=== PATIENT | male | born 1960 | race African-American/Black ===

== ENCOUNTER 2017-01-29 20:41 | Emergency (ER) | payer MEDICAID ==
[~2017-01-29] VITALS: Ht 188 cm; Wt 73.0 kg
[~2017-01-29 20:41] MED LIST: DEPAKOTE; RISPERDAL
[2017-01-30 00:38] LABS: BASOPHILS % 0.7 % (0.0-2.0); EOSINOPHILS % 0.5 % (0.0-5.0); HEMATOCRIT. 41.9 % (42.0-52.0); HEMOGLOBIN. 13.9 g/dL (14.0-18.0); LYMPHOCYTES % 19.2 % (20.0-50.0); MEAN CORPUSCULAR HEMOGLOBIN 28.5 pg (28.0-32.0); MEAN CORPUSCULAR HGB CONC 33.3 g/dL (31.0-37.0); MEAN CORPUSCULAR VOLUME 85.8 fL (80.0-94.0); MONOCYTES % 5.3 % (2.0-8.0); NEUTROPHILS % 74.3 % (40.0-76.0); PLATELET 299 x1000/uL (130-400); RED BLOOD CELL COUNT 4.88 mill/uL (4.7-6.1); RED CELL DISTRIBUTION WIDTH 14.2 % (11.6-14.6); WHITE BLOOD COUNT 11.6 x1000/uL (4.5-11.0)
[2017-01-30 00:38] LABS: CLARITY URINE CLEAR (CLEAR); COLOR URINE DARK YELLOW (YELLOW); GLUCOSE URINE NEGATIVE (NEGATIVE); KETONES URINE 1+ (NEGATIVE); LEUKOCYTE ESTERASE URINE NEGATIVE (NEGATIVE); NITRITE URINE NEGATIVE (NEGATIVE); OCCULT BLOOD URINE NEGATIVE (NEGATIVE); PH URINE 5.5 (4.5-8.0); PROTEIN URINE NEGATIVE (NEGATIVE)
[2017-01-30 00:46] LABS: CHLORIDE 106 mEq/L (98-107); INDEX HEMOLYSI 1 (1-3); INDEX ICTERIC 1 (1-4); INDEX LIPEMIC 1 (1-3)
[2017-01-30 00:48] LABS: *AMPHETAMINES SCREEN URINE PRESUMTIVE POSITIVE (NEGATIVE); *BARBITURATES SCREEN URINE NEGATIVE (NEGATIVE); *BENZODIAZEPINES SCREEN URINE NEGATIVE (NEGATIVE); *COCAINE SCREEN URINE PRESUMTIVE POSITIVE (NEGATIVE); CANNABINOID URINE SCREEN PRESUMTIVE POSITIVE (NEGATIVE); ECSTASY MDMA SCREEN URINE CONF.TEST INDICATED (NEGATIVE); METHADONE URINE SCREEN NEGATIVE (NEGATIVE); OPIATES URINE SCREEN NEGATIVE (NEGATIVE); PHENCYCLIDINE URINE SCREEN NEGATIVE (NEGATIVE)
[2017-01-30 00:54] LABS: ACETAMINOPHEN < 2 ug/mL (10-30); ALANINE AMINOTRANSFERASE 21 IU/L (13-61); ALBUMIN 3.2 g/dL (3.4-5.0); ANION GAP 10; CALCIUM 8.5 mg/dL (8.5-10.1); CARBON DIOXIDE 29 mEq/L (21-32); ETHANOL BLOOD < 10 mg/dL; UREA NITROGEN BLOOD 19 mg/dL (7-21); eGFR > 60 mL/min (>60)
[2017-01-30 12:52] VITALS: BP 109/62
== END 2017-01-30 12:53 | disposition home or self-care (01) ==
LOC: ER 20:41
DX: F20.0 Paranoid schizophrenia (principal); R45.851 Suicidal ideations; F17.210 Nicotine dependence, cigarettes, uncomplicated; F12.10 Cannabis abuse, uncomplicated; F14.10 Cocaine abuse, uncomplicated; F15.10 Other stimulant abuse, uncomplicated; Z98.890 Other specified postprocedural states; Z87.828 Personal history of other (healed) physical injury and trauma
CPT/HCPCS: 36415; 80053; 80305; 80307; 80329; 81003; 85025; 99284; G0482

== ENCOUNTER 2017-05-15 11:29 | Emergency (ER) | payer MEDICAID, OTHER ==
[~2017-05-15] VITALS: Ht 188 cm; Wt 75.0 kg
[2017-05-15] MEDS ORDERED: ACETAMINOPHEN WITH CODEINE 300/30MG TABLET PO ONE (14:45)
[2017-05-15] MEDS ORDERED: IBUPROFEN 600MG TABLET PO ONE (14:45)
[2017-05-15] MEDS ORDERED: BACITRACIN ZINC OINT UDPKT TOP NR (16:00)
[2017-05-15 16:41] VITALS: BP 124/77
== END 2017-05-15 16:44 | disposition home or self-care (01) ==
LOC: ER 11:29
DX: S62.392A Other fracture of third metacarpal bone, right hand, initial encounter for closed fracture (principal); X58.XXXA Exposure to other specified factors, initial encounter; Y93.89 Activity, other specified; Y92.89 Other specified places as the place of occurrence of the external cause; Y99.8 Other external cause status
CPT/HCPCS: 29125; 73130; 99284; Z7610

== ENCOUNTER 2019-03-03 02:04 | Emergency (ER) | payer MEDICAID, OTHER ==
[~2019-03-03] VITALS: Ht 182.9 cm; Wt 68.0 kg
[2019-03-03] MEDS ORDERED: OLANZAPINE 5MG TABLET PO STA (02:56)
[2019-03-03 03:29] LABS: BASOPHILS % 1.2 % (0.0-2.0); EOSINOPHILS % 1.1 % (0.0-5.0); HEMATOCRIT. 40.9 % (42.0-52.0); HEMOGLOBIN. 13.5 g/dL (14.0-18.0); LYMPHOCYTES % 31.8 % (20.0-50.0); MEAN CORPUSCULAR HEMOGLOBIN 28.5 pg (28.0-32.0); MEAN CORPUSCULAR VOLUME 86.3 fL (80.0-94.0); MEAN PLATELET VOLUME 8.3 fl (7.4-10.4); MONOCYTES % 7.2 % (2.0-8.0); NEUTROPHILS % 58.7 % (40.0-76.0); PLATELET 321 x1000/uL (130-400); RED BLOOD CELL COUNT 4.74 mill/uL (4.7-6.1); RED CELL DISTRIBUTION WIDTH 15.2 % (11.6-14.6)
[2019-03-03 03:33] LABS: CLARITY URINE CLEAR (CLEAR); COLOR URINE YELLOW (YELLOW); KETONES URINE 1+ (NEGATIVE); LEUKOCYTE ESTERASE URINE NEGATIVE (NEGATIVE); NITRITE URINE NEGATIVE (NEGATIVE); OCCULT BLOOD URINE NEGATIVE (NEGATIVE); PROTEIN URINE NEGATIVE (NEGATIVE); SPECIFIC GRAVITY URINE 1.032 (1.005-1.030)
[2019-03-03 03:36] LABS: CHLORIDE 104 mEq/L (98-107)
[2019-03-03 03:40] LABS: ETHANOL BLOOD < 10 mg/dL
[2019-03-03] MEDS ORDERED: OLANZAPINE 5MG TABLET PO NR (03:45)
[2019-03-03 03:51] LABS: *BENZODIAZEPINES SCREEN URINE NEGATIVE (NEGATIVE); *COCAINE SCREEN URINE PRESUMTIVE POSITIVE (NEGATIVE)
[2019-03-03 03:53] LABS: *AMPHETAMINES SCREEN URINE PRESUMTIVE POSITIVE (NEGATIVE); *BARBITURATES SCREEN URINE NEGATIVE (NEGATIVE); CANNABINOID URINE SCREEN PRESUMTIVE POSITIVE (NEGATIVE); METHADONE URINE SCREEN NEGATIVE (NEGATIVE); OPIATES URINE SCREEN NEGATIVE (NEGATIVE); PHENCYCLIDINE URINE SCREEN NEGATIVE (NEGATIVE)
[2019-03-03 06:07] VITALS: BP 127/81
== END 2019-03-03 10:00 | disposition home or self-care (01) ==
LOC: ER 02:04
DX: R45.851 Suicidal ideations (principal); F32.9 Major depressive disorder, single episode, unspecified; F20.9 Schizophrenia, unspecified; F14.10 Cocaine abuse, uncomplicated; F15.10 Other stimulant abuse, uncomplicated; F12.10 Cannabis abuse, uncomplicated; Z88.8 Allergy status to other drugs, medicaments and biological substances
CPT/HCPCS: 36415; 80305; 80320; 99284; G0480

== ENCOUNTER 2021-05-21 04:40 | Emergency (ER) | payer MEDICAID ==
[~2021-05-21] VITALS: Ht 185.4 cm; Wt 82.0 kg
[2021-05-21 04:41] VITALS: BP 121/74
== END 2021-05-21 06:51 | disposition home or self-care (01) ==
LOC: ER 05:23
DX: F15.10 Other stimulant abuse, uncomplicated (principal); F32.9 Major depressive disorder, single episode, unspecified; F20.9 Schizophrenia, unspecified; F14.10 Cocaine abuse, uncomplicated; F12.10 Cannabis abuse, uncomplicated
CPT/HCPCS: 99283

== ENCOUNTER 2021-08-07 05:05 | Emergency (ER) | payer MEDICAID ==
[~2021-08-07] VITALS: Ht 188 cm; Wt 63.0 kg
[2021-08-07 05:31] LABS: BASOPHILS % 0.7 % (0.0-2.0); EOSINOPHILS % 0.7 % (0.0-5.0); HEMATOCRIT. 39.5 % (42.0-52.0); HEMOGLOBIN. 13.1 g/dL (14.0-18.0); LYMPHOCYTES % 24.6 % (20.0-50.0); MEAN CORPUSCULAR HEMOGLOBIN 28.3 pg (28.0-32.0); MEAN CORPUSCULAR VOLUME 85.6 fL (80.0-94.0); MEAN PLATELET VOLUME 8.7 fl (7.4-10.4); MONOCYTES % 9.8 % (2.0-8.0); NEUTROPHILS % 64.2 % (40.0-76.0); PLATELET 293 x1000/uL (130-400); RED BLOOD CELL COUNT 4.62 mill/uL (4.7-6.1); RED CELL DISTRIBUTION WIDTH 14.4 % (11.6-14.6)
[2021-08-07 05:38] LABS: CHLORIDE 104 mEq/L (98-107)
[2021-08-07 05:42] LABS: ETHANOL BLOOD < 10 mg/dL
[2021-08-07 07:09] LABS: CLARITY URINE CLEAR (CLEAR); COLOR URINE YELLOW (YELLOW); KETONES URINE 1+ (NEGATIVE); LEUKOCYTE ESTERASE URINE NEGATIVE (NEGATIVE); NITRITE URINE NEGATIVE (NEGATIVE); OCCULT BLOOD URINE NEGATIVE (NEGATIVE); PROTEIN URINE NEGATIVE (NEGATIVE); SPECIFIC GRAVITY URINE 1.027 (1.005-1.030); UROBILINOGEN URINE 0.2 E.U./dL (0.2-1.0)
[2021-08-07 07:29] LABS: *BARBITURATES SCREEN URINE NEGATIVE (NEGATIVE); CANNABINOID URINE SCREEN PRESUMTIVE POSITIVE (NEGATIVE); METHADONE URINE SCREEN NEGATIVE (NEGATIVE); OPIATES URINE SCREEN NEGATIVE (NEGATIVE); PHENCYCLIDINE URINE SCREEN NEGATIVE (NEGATIVE)
[2021-08-07 07:30] LABS: *AMPHETAMINES SCREEN URINE PRESUMTIVE POSITIVE (NEGATIVE); *BENZODIAZEPINES SCREEN URINE NEGATIVE (NEGATIVE); *COCAINE SCREEN URINE PRESUMTIVE POSITIVE (NEGATIVE)
[2021-08-07] MEDS ORDERED: DIVALPROEX SODIUM 500MG DR TABLET PO SCH (09:00)
[2021-08-07] MEDS ORDERED: RISPERIDONE 1MG TABLET PO SCH (09:00)
[2021-08-07] MEDS: BUSPIRONE HCL 5MG TABLET PO SCH ×3 (11:12→17:00)
[2021-08-07] MEDS: BUPROPION HCL 150MG TABLET XL 24HR PO SCH (11:12)
[2021-08-07] MEDS ORDERED: ACETAMINOPHEN 325MG TABLET PO ONE (12:30)
[2021-08-08] MEDS: BUPROPION HCL 150MG TABLET XL 24HR PO SCH (08:05)
[2021-08-08] MEDS: BUSPIRONE HCL 5MG TABLET PO SCH (08:05)
[2021-08-08 18:55] VITALS: BP 129/80
== END 2021-08-08 18:59 ==
LOC: ER 05:05
DX: R45.851 Suicidal ideations (principal); F19.10 Other psychoactive substance abuse, uncomplicated; F31.9 Bipolar disorder, unspecified; F20.9 Schizophrenia, unspecified; F41.9 Anxiety disorder, unspecified; Z88.8 Allergy status to other drugs, medicaments and biological substances; Z20.822 Contact with and (suspected) exposure to COVID-19
CPT/HCPCS: 36415; 80053; 80305; 80320; 81003; 85025; 99285; C9803; U0003; U0005; Z7610; A4565; G0480

== ENCOUNTER 2022-04-21 04:29 | Emergency (ER) | payer MEDICAID ==
[~2022-04-21] VITALS: Ht 189.2 cm; Wt 80.0 kg
[2022-04-21 05:40] LABS: BASOPHILS % 0.6 % (0.0-2.0); EOSINOPHILS % 1.7 % (0.0-5.0); HEMATOCRIT. 40.5 % (42.0-52.0); HEMOGLOBIN. 13.1 g/dL (14.0-18.0); LYMPHOCYTES % 26.4 % (20.0-50.0); MEAN CORPUSCULAR HEMOGLOBIN 27.6 pg (28.0-32.0); MEAN CORPUSCULAR VOLUME 85.8 fL (80.0-94.0); MEAN PLATELET VOLUME 7.8 fl (7.4-10.4); NEUTROPHILS % 60.3 % (40.0-76.0); PLATELET 500 x1000/uL (130-400); RED BLOOD CELL COUNT 4.73 mill/uL (4.7-6.1); RED CELL DISTRIBUTION WIDTH 15.3 % (11.6-14.6)
[2022-04-21 05:49] LABS: CHLORIDE 102 mEq/L (98-107)
[2022-04-21 05:56] LABS: ETHANOL BLOOD < 10 mg/dL
[2022-04-21 05:58] LABS: CLARITY URINE CLOUDY (CLEAR); COLOR URINE YELLOW (YELLOW); KETONES URINE TRACE (NEGATIVE); LEUKOCYTE ESTERASE URINE 2+ (NEGATIVE); NITRITE URINE NEGATIVE (NEGATIVE); OCCULT BLOOD URINE TRACE (NEGATIVE); PH URINE 5.5 (4.5-8.0); PROTEIN URINE 1+ (NEGATIVE); SPECIFIC GRAVITY URINE 1.025 (1.005-1.030)
[2022-04-21 06:13] LABS: *AMPHETAMINES SCREEN URINE PRESUMTIVE POSITIVE (NEGATIVE); *BARBITURATES SCREEN URINE NEGATIVE (NEGATIVE); *BENZODIAZEPINES SCREEN URINE NEGATIVE (NEGATIVE); *COCAINE SCREEN URINE PRESUMTIVE POSITIVE (NEGATIVE); CANNABINOID URINE SCREEN PRESUMTIVE POSITIVE (NEGATIVE); METHADONE URINE SCREEN NEGATIVE (NEGATIVE); OPIATES URINE SCREEN NEGATIVE (NEGATIVE); PHENCYCLIDINE URINE SCREEN NEGATIVE (NEGATIVE)
[2022-04-21] MEDS: DIVALPROEX SODIUM 500MG DR TABLET PO SCH ×2 (12:00→22:24)
[2022-04-21] MEDS: BUPROPION HCL 150MG SR TABLET PO SCH (12:00)
[2022-04-21] MEDS ORDERED: CEFTRIAXONE SODIUM 1 G/VIAL IM ONE (17:15)
[2022-04-21] MEDS ORDERED: LIDOCAINE HCL 1% 20ML VIAL (Pyxis) INJ INFIL ONE (17:15)
[2022-04-21] MEDS: QUETIAPINE FUMARATE 50MG TABLET PO SCH (22:24)
[2022-04-22] MEDS: DIVALPROEX SODIUM 500MG DR TABLET PO SCH ×2 (10:31→21:25)
[2022-04-22] MEDS: BUPROPION HCL 150MG SR TABLET PO SCH (10:31)
[2022-04-22] MEDS: QUETIAPINE FUMARATE 50MG TABLET PO SCH (21:25)
[2022-04-22] MEDS ORDERED: CEFTRIAXONE SODIUM 1 G/VIAL IM ONE (22:45)
[2022-04-22] MEDS ORDERED: LIDOCAINE HCL 1% 20ML VIAL (Pyxis) INJ INFIL ONE (22:45)
[2022-04-23] MEDS: BUPROPION HCL 150MG SR TABLET PO SCH (09:09)
[2022-04-23] MEDS: DIVALPROEX SODIUM 500MG DR TABLET PO SCH ×2 (09:09→21:51)
[2022-04-23] MEDS ORDERED: CIPR-263 MT (18:37)
[2022-04-23] MEDS ORDERED: NITR-87 MT (18:40)
[2022-04-23] MEDS ORDERED: CEFTRIAXONE SODIUM 1 G/VIAL IM ONE (19:00)
[2022-04-23] MEDS ORDERED: LIDOCAINE HCL 1% 20ML VIAL (Pyxis) INJ INFIL ONE (19:00)
[2022-04-23] MEDS: QUETIAPINE FUMARATE 50MG TABLET PO SCH (21:51)
[2022-04-23 22:50] VITALS: BP 112/78
== END 2022-04-23 23:25 | disposition short-term general hospital (02) ==
LOC: ER 04:29
DX: R45.851 Suicidal ideations (principal); N39.0 Urinary tract infection, site not specified; Z20.822 Contact with and (suspected) exposure to COVID-19; F20.9 Schizophrenia, unspecified
CPT/HCPCS: 36415; 80053; 80305; 80320; 81003; 85025; 87077; 87086; 87186; 96372; 99285; C9803; J0696; J3490; U0003; U0005; Z7610; G0480

== ENCOUNTER 2024-05-11 01:11 | Emergency (ER) | payer MEDICAID, OTHER ==
[~2024-05-11] VITALS: Ht 182.9 cm; Wt 68.0 kg
[~2024-05-11 01:11] MED LIST changes: +CIPR-263 MT; +NITR-87 MT
[2024-05-11 01:25] VITALS: O2SAT 100
[2024-05-11 02:47] LABS: BASOPHILS % 0.8 % (0.0-2.0); HEMATOCRIT. 40.7 % (42.0-52.0); HEMOGLOBIN. 13.4 g/dL (14.0-18.0); LYMPHOCYTES % 21.8 % (20.0-50.0); MEAN CORPUSCULAR HEMOGLOBIN 29.4 pg (28.0-32.0); MEAN CORPUSCULAR HGB CONC 32.9 g/dL (31.0-37.0); MEAN CORPUSCULAR VOLUME 89.5 fL (80.0-94.0); MEAN PLATELET VOLUME 8.7 fl (7.4-10.4); MONOCYTES % 8.6 % (2.0-8.0); NEUTROPHILS % 67.8 % (40.0-76.0); PLATELET 325 x1000/uL (130-400); RED BLOOD CELL COUNT 4.55 mill/uL (4.7-6.1); RED CELL DISTRIBUTION WIDTH 15.4 % (11.6-14.6); WHITE BLOOD COUNT 6.6 x1000/uL (4.5-11.0)
[2024-05-11 02:53] LABS: CHLORIDE 105 mEq/L (98-107); POTASSIUM 4.6 mEq/L (3.5-5.1); SODIUM 139 mEq/L (136-145)
[2024-05-11 02:54] LABS: CALCIUM 9.6 mg/dL (8.7-10.4); CARBON DIOXIDE 28 mEq/L (21-32)
[2024-05-11 02:59] LABS: CREATININE 1.1 mg/dL (0.6-1.3); GLUCOSE 72 mg/dL (70-105); UREA NITROGEN BLOOD 16 mg/dL (9-23)
[2024-05-11] MEDS: KETOROLAC 15MG/ML VIAL IM ONE (03:54)
[2024-05-11 06:29] VITALS: BP 110/79; PULSE 87; RESP 18; TEMP 36.72516; O2SAT 98
== END 2024-05-11 06:36 | disposition home or self-care (01) ==
LOC: ER 01:17
DX: S06.0X0A Concussion without loss of consciousness, initial encounter (principal); S01.81XA Laceration without foreign body of other part of head, initial encounter; Z88.8 Allergy status to other drugs, medicaments and biological substances; F31.9 Bipolar disorder, unspecified; J44.9 Chronic obstructive pulmonary disease, unspecified; F20.9 Schizophrenia, unspecified; F15.90 Other stimulant use, unspecified, uncomplicated; Y08.89XA Assault by other specified means, initial encounter; Y93.89 Activity, other specified; Y92.89 Other specified places as the place of occurrence of the external cause; Y99.8 Other external cause status
CPT/HCPCS: 80048; 85025; 36415; 70450; 72125; 12004; 12011; 40650; 99284; J1885; Z7610 ×2